=== PATIENT | male | born 1935 | race Caucasian/White ===

== ENCOUNTER 2023-07-24 18:01 | Emergency (ER) | payer OTHER, MEDICAID ==
[~2023-07-24] VITALS: Ht 162.6 cm; Wt 83.9 kg
[2023-07-24 19:14] VITALS: BP_SYST 130; PULSE 66; RESP 20; TEMP 98; O2SAT 96
[2023-07-24] MEDS: guaiFENesin/DEXTROMETHORPHAN 10 ML UDC PO ONE (20:10)
[2023-07-24] MEDS ORDERED: IPRATROPIUM/ALBUTEROL SULFATE 3 ML AMPUL.NEB (DUONEB) INH ONE (20:15)
[2023-07-24 20:34] LABS: INFLUENZA TYPE A Negative (NEGATIVE); INFLUENZA TYPE B NEGATIVE (NEGATIVE)
[2023-07-24] MEDS: NACL 0.9% 1,000 ML IV ONE (20:36)
[2023-07-24 20:52] LABS: BASOPHILS # (AUTO) 0.1 K/uL (0.0-0.2); BASOPHILS % (AUTO) 1.1 % (0.0-2.0); EOSINOPHILS # (AUTO) 0.3 K/uL (0.0-0.4); EOSINOPHILS % (AUTO) 2.8 % (0.0-4.0); HEMATOCRIT 40.7 % (36-54); HEMOGLOBIN 14.2 g/dL (14.0-18.0); LYMPHOCYTES # (AUTO) 1.3 K/uL (1.0-5.5); LYMPHOCYTES % (AUTO) 12.5 % (20.5-51.5); MEAN CORPUSCULAR HEMOGLOBIN 33 pg (27-31); MEAN CORPUSCULAR HGB CONC 35 % (32-36); MEAN CORPUSCULAR VOLUME 95 fL (79.0-98.0); MONOCYTES % (AUTO) 9.1 % (1.7-9.3); NEUTROPHILS # (AUTO) 7.9 K/uL (1.8-7.7); NEUTROPHILS % (AUTO) 74.5 % (40.0-70.0); PLATELET COUNT (AUTO) 190 K/uL (130-430); RED BLOOD CELL COUNT(AUTO) 4.29 MIL/uL (4.2-6.2); WHITE BLOOD COUNT (AUTO) 10.6 K/uL (4.8-10.8)
[2023-07-24 21:11] LABS: ALANINE AMINOTRANSFERASE 22 U/L (12-78); ALBUMIN 3.6 g/dL (3.4-4.8); ANION GAP 9 (5-15); ASPARTATE AMINOTRANSFERASE 17 U/L (10-37); CALCIUM 8.6 mg/dL (8.4-11.0); CARBON DIOXIDE 28 mmol/L (23-29); CHLORIDE 104 mmol/L (98-107); CREATININE 1.44 mg/dL (0.55-1.30); GLUCOSE 106 mg/dL (74-106); POTASSIUM 3.6 mmol/L (3.5-5.1); SODIUM SERUM 141 mmol/L (136-145); TOTAL BILIRUBIN 0.7 mg/dL (0.0-1.0); UREA NITROGEN, BLOOD 28 mg/dL (8-21)
[2023-07-24 21:13] LABS: BILIRUBIN,DIRECT 0.2 mg/dL (0.0-0.3)
[2023-07-24] MEDS ORDERED: AZITHROMYCIN 500 MG/VIAL (ZITHROMAX) IV ONE (21:32)
[2023-07-24] MEDS ORDERED: cefTRIAXone 1 GM VIAL ONE (21:32)
[2023-07-24 21:36] LABS: INR 1.3 (0.80-1.20); PROTHROMBIN TIME 13.3 SECS (9.5-12.5)
[2023-07-24] MEDS ORDERED: IPRATROPIUM/ALBUTEROL SULFATE 3 ML AMPUL.NEB (DUONEB) INH PRN (21:45)
[2023-07-24] MEDS: cefTRIAXone 1 GM in D5W 50 ML IV ONE (21:48)
[2023-07-24] MEDS: AZITHROMYCIN 500 MG in NS 250 ML IV ONE (21:49)
[2023-07-24] MEDS ORDERED: ZIT250 PO (21:51)
[2023-07-24] MEDS ORDERED: AUG875 PO (21:51)
[2023-07-25] VITALS: BP_SYST 127; PULSE 66; RESP 20; TEMP 98; O2SAT 96
[2023-07-25] MEDS ORDERED: cefTRIAXone 1 GM VIAL IM ONE (09:00)
[2023-07-25] MEDS ORDERED: AZITHROMYCIN 500 MG in NS 250 ML IV SCH (09:00)
== END 2023-07-25 00:04 | disposition left against medical advice (07) ==
LOC: SED 18:01 → STU 21:32 → UNDOADMIN 21:32 → UNDODISIN 07-25 00:04 → STU 07-25 00:04
DX: N17.9 Acute kidney failure, unspecified (principal); J18.1 Lobar pneumonia, unspecified organism; Z20.822 Contact with and (suspected) exposure to COVID-19; E11.9 Type 2 diabetes mellitus without complications; I10 Essential (primary) hypertension
CPT/HCPCS: 99285; 96365; 71045; 96367; 96361; 87426; 80076; 80048; 83880; 85025; 85610; 85730; 87040; 87205; 84484; 36415; 93005; 83605; 87804 ×2; J0456; J0696 ×2; J7030; 87070; G0378; J7050